=== PATIENT | male | born 1980 | race African-American/Black ===

== ENCOUNTER 2018-02-11 23:12 | Observation (INO) ==
[2018-02-11 23:54] VITALS: TEMP 98.6
--- NOTE | 2018-02-12 01:54 | XR ---
EXAM DATE: 02/12/2018 1:41 AM EDT AGE/SEX: 37 years / Male INDICATIONS: Left upper chest pain off and on. CLINICAL DATA: This is the patient's initial encounter. Patient reports that signs and symptoms have been present for 3 weeks and indicates a pain score of 4/10. MEDICAL/SURGICAL HISTORY: . Diabetes None. COMPARISON: No prior exams available for comparison. FINDINGS: A single AP view of the chest demonstrates the lungs to be symmetrically aerated without evidence of mass, infiltrate or effusion. The cardiomediastinal contours are unremarkable. Osseous structures a re intact. CONCLUSION: No acute cardiopulmonary disease. Electronically signed by: Cedrick Ornelas MD 02/12/2018 1:52 AM EDT
[2018-02-12 01:58] LABS: Baso % (Auto) 0.6 % (0.0-2.0); Eos # (Auto) 0.2 th/mm3 (0.0-0.4); Eos % (Auto) 2.6 % (0.0-4.0); Hematocrit 45.4 % (39.0-51.0); Hemoglobin 14.7 gm/dL (13.0-17.0); Lymph # (Auto) 2.6 th/mm3 (1.0-4.8); Lymph % (Auto) 35.7 % (9.0-44.0); Mean Corpuscular HGB Conc 32.5 % (32.0-36.0); Mean Corpuscular Hemoglobin 27.2 pg (27.0-34.0); Mean Corpuscular Volume 83.8 fL (80.0-100.0); Mean Platelet Volume 8.5 fL (7.0-11.0); Mono # (Auto) 0.9 th/mm3 (0.0-0.9); Mono % (Auto) 12.1 % (0.0-8.0); Neut # (Auto) 3.6 th/mm3 (1.8-7.7); Platelet Count 249 th/mm3 (150-450); Red Blood Count 5.41 mil/mm3 (4.50-5.90); Red Cell Distribution Width 13.8 % (11.6-17.2); White Blood Count 7.4 th/mm3 (4.0-11.0)
[2018-02-12 02:17] LABS: Activated Partial Thrombo Time 25.5 sec (24.3-30.1); Prothrombin Time 10.2 sec (9.8-11.6)
[2018-02-12 02:22] LABS: Alkaline Phosphatase 67 U/L (45-117); Creatine Kinase 282 U/L (39-308); Total Protein 8.1 g/dL (6.4-8.2)
--- NOTE | 2018-02-12 02:23 | ED ---
HPI General Chief complaint: Chest Pain Stated complaint: Chest pain/Resp Time Seen by Provider: 02/12/18 01:27 Source: patient Limitations: no limitations History of Present Illness HPI narrative: The patient is a 37 year old male who presents to the [facility] emergency department with a history of chest pain, shortness of breath, and fluttering sensations that began on 01/16/2018. The patient reports that the symptoms are coming and going. They occur with activity and a rest. He has been to a local [facility] [place] and had labs and an ECG done that were unremarkable according to him. He has not been referred to a nursing care attendant or ever had a stress test done. He reports that he was recently diagnosed with high blood pressure and started on medication, however it made him feel dizzy, therefore he stopped it after 2 days. The patient reports that the chest pain is a throbbing sensation in the left side of his chest and left side of his upper back. He reports having associated shortness of breath. He denies having any nausea or vomiting. He denies having any diaphoresis. He does report having a bloating sensation in the left upper quadrant of the abdomen with intermittent indigestion. He reports that he tried taking Gas-X without improvement. The patient reports that he does smoke a cigar daily. He denies having any prior history of hyperlipidemia or diabetes mellitus. On review of systems otherwise , he denies having any known recent fevers, cough or congestion, neck pain, chest pain, shortness of breath, diarrhea, urinary symptoms, or neurologic symptoms. Related Data Home Medications Medication Instructions Recorded Confirmed metformin 500 mg PO BID 02/12/18 02/12/18 Previous Rx's Medication Instructions Recorded amlodipine 2.5 mg PO DAILY 30 Days #30 tab 02/12/18 Allergies Allergy/AdvReac Type Severity Reaction Status Date / Time No Known Allergies Allergy Unverified 02/12/18 08:58 Review of Systems ROS Unobtainable All other systems reviewed negative except as stated in HPI Constitutional Denies fever(s) Eyes Denies change in vision ENT Denies headache(s) and Denies nasal congestion Cardiovascular Reports chest pain, Reports palpitations, Reports dyspnea and Reports dyspnea on exertion Respiratory Reports dyspnea Gastrointestinal Denies abdominal pain, Reports dyspepsia, Reports heartburn and Reports other ( bloating) Genitourinary Denies difficulty urinating Musculoskeletal Denies myalgias Integumentary/Breasts Denies rash Neurologic Denies headache(s) Psychiatric Denies depression Endocrine Denies polyuria Hematologic/Lymphatic Denies easy bruising [facility] Medical History Medical History Diabetes (Acute) Hypertension (Acute) Sleep apnea (Acute) Surgical History Surgical History H/O Achilles tendon repair (Acute) History of tonsillectomy (Acute) Social History Social History Substance History: No History of Abuse Second Hand Smoke Exposure: Yes Smoking Status: Current every day smoker Tobacco Type: Cigars How Often Do You Have a Drink Containing Alcohol: 2 to 4 times a month Hx Recent Travel: No Recent Travel in [facility] within the Last 8 Weeks: No Recent Out of Country Travel within the Last 8 Weeks: No Immunization History Tetanus Immunization: <5 Years Hx Influenza Vaccine This Season: No Exam Const General: cooperative, no acute distress, well developed and well groomed HENMT Head: normocephalic and atraumatic Nose: no nasal discharge and no epistaxis Mouth: moist mucous membranes Throat: posterior oropharynx normal Eyes Sclera: normal sclerae Pupils: PERRL Neck Neck: no meningeal signs, trachea midline and no JVD Resp Effort & Inspection: no use of accessory muscles Auscultation: clear to auscultation bilaterally Cardio Rate: regular rate Rhythm: regular rhythm Heart Sounds: no murmurs GI Inspection: non-distended Palpation: soft, no hepatosplenomegaly and nontender Auscultation: normal bowel sounds Back/Spine/Pelvis Back: no CVA tenderness Skin General: dry skin (warm) Neuro General: alert, awake and oriented x3 Cranial Nerves: other (No facial asymmetry) Speech: speech normal Motor: no movement abnormalities noted Extrem General: normal to inspection (No calf tenderness on palpation.), no clubbing, no cyanosis and no edema Psych Mood: congruent mood Affect: normal affect Judgment: judgment good Course Initial Documented Vital Signs Temperature 98.6 F 02/11/18 23:51 Pulse Rate 75 02/11/18 23:51 Respiratory Rate 17 02/11/18 23:51 Blood Pressure 181/98 H 02/11/18 23:51 Pulse Oximetry 98 02/11/18 23:51 Last Documented Vital Signs Temperature 98.6 F 02/11/18 23:51 Pulse Rate 58 L 02/12/18 10:00 Respiratory Rate 19 02/12/18 10:00 Blood Pressure 146/74 H 02/12/18 10:00 Pulse Oximetry 100 02/12/18 10:00 Medical Decision Making MDM Narrative Medical decision making narrative: During the course of the patient's emergency department visit, the patient's history, examination, and differential diagnosis were reviewed with the patient. The patient was placed on a devops developer with oximetry and frequent blood pressure monitoring. The patient had IV access obtained and blood work sent for analysis. Diagnostic evaluation was started regarding this patient's chest pain. The patient was initially provided aspirin 324 mg p.o. 1, nitroglycerin sublingual every 5 minutes 3 as needed chest pain, nitroglycerin 1 inch the chest wall. Famotidine 20 mg IV. The patient's laboratory studies are remarkable for a white count of 7.4, platelets 249, monocytosis at 12.1, hemoglobin is 14.7, PT PTT are unremarkable , CMP is remarkable for a troponin I of less than 0.02, sodium 139, glucose 132 , GFR of 81, lipase within normal limits, BMP within normal limits. Chest x-ray showed no evidence of acute cardiopulmonary disease. The patient will be admitted to the chest pain center for rule out serial cardiac enzyme protocol. Lab Data Result diagrams: 02/12/18 01:48 02/12/18 01:48 Lab Results 02/12/18 02/12/18 02/12/18 Range/Units 01:48 01:48 01:48 WBC 7.4 (4.0-11.0) th/mm3 RBC 5.41 (4.50-5.90) mil/mm3 Hgb 14.7 (13.0-17.0) gm/dL Hct 45.4 (39.0-51.0) % MCV 83.8 (80.0-100.0) fL MCH 27.2 (27.0-34.0) pg MCHC 32.5 (32.0-36.0) % RDW 13.8 (11.6-17.2) % Plt Count 249 (150-450) th/mm3 MPV 8.5 (7.0-11.0) fL Neut % (Auto) 49.0 (16.0-70.0) % Lymph % (Auto) 35.7 (9.0-44.0) % [place] % (Auto) 12.1 H (0.0-8.0) % Eos % (Auto) 2.6 (0.0-4.0) % Baso % (Auto) 0.6 (0.0-2.0) % Neut # (Auto) 3.6 (1.8-7.7) th/mm3 Lymph # (Auto) 2.6 (1.0-4.8) th/mm3 [place] # (Auto) 0.9 (0.0-0.9) th/mm3 Eos # (Auto) 0.2 (0.0-0.4) th/mm3 Baso # (Auto) 0.0 (0.0-0.2) th/mm3 WBC Differential . Differential Comment Auto diff final PT 10.2 (9.8-11.6) sec INR 1.0 Ratio APTT 25.5 (24.3-30.1) sec Sodium 139 (136-145) meq/L Potassium 4.0 (3.5-5.1) meq/L Chloride 103 (98-107) meq/L Carbon Dioxide 29.0 (21.0-32.0) meq/L Anion Gap 7 (5-15) meq/L BUN 9 (7-18) mg/dL Creatinine 1.23 (0.60-1.30) mg/dL Estimated GFR 81 L (>89) mL/min Random Glucose 132 H (74-106) mg/dL Calcium 8.9 (8.5-10.1) mg/dL Magnesium 1.9 (1.5-2.5) mg/dL Total Bilirubin 0.2 (0.2-1.0) mg/dL AST 22 (15-37) U/L ALT 52 (12-78) U/L Alkaline Phosphatase 67 (45-117) U/L Total Creatine Kinase 282 (39-308) U/L CK-MB (CK-2) 1.1 (0.5-3.6) ng/mL Troponin I Less than 0.02 L (0.02-0.05) ng/mL B-Natriuretic Peptide (0-100) pg/mL Total Protein 8.1 (6.4-8.2) g/dL Albumin 4.2 (3.4-5.0) g/dL Lipase 213 (73-393) U/L 07/31/18 07/31/18 07/31/18 Range/Units 01:48 06:24 09:45 WBC (4.0-11.0) th/mm3 RBC (4.50-5.90) mil/mm3 Hgb (13.0-17.0) gm/dL Hct (39.0-51.0) % MCV (80.0-100.0) fL MCH (27.0-34.0) pg MCHC (32.0-36.0) % RDW (11.6-17.2) % Plt Count (150-450) th/mm3 MPV (7.0-11.0) fL Neut % (Auto) (16.0-70.0) % Lymph % (Auto) (9.0-44.0) % [place] % (Auto) (0.0-8.0) % Eos % (Auto) (0.0-4.0) % Baso % (Auto) (0.0-2.0) % Neut # (Auto) (1.8-7.7) th/mm3 Lymph # (Auto) (1.0-4.8) th/mm3 [place] # (Auto) (0.0-0.9) th/mm3 Eos # (Auto) (0.0-0.4) th/mm3 Baso # (Auto) (0.0-0.2) th/mm3 WBC Differential Differential Comment PT (9.8-11.6) sec INR Ratio APTT (24.3-30.1) sec Sodium (136-145) meq/L Potassium (3.5-5.1) meq/L Chloride (98-107) meq/L Carbon Dioxide (21.0-32.0) meq/L Anion Gap (5-15) meq/L BUN (7-18) mg/dL Creatinine (0.60-1.30) mg/dL Estimated GFR (>89) mL/min Random Glucose (74-106) mg/dL Calcium (8.5-10.1) mg/dL Magnesium (1.5-2.5) mg/dL Total Bilirubin (0.2-1.0) mg/dL AST (15-37) U/L ALT (12-78) U/L Alkaline Phosphatase (45-117) U/L Total Creatine Kinase 233 218 (39-308) U/L CK-MB (CK-2) (0.5-3.6) ng/mL Troponin I Less than 0.02 L Less than 0.02 L (0.02-0.05) ng/mL B-Natriuretic Peptide 4 (0-100) pg/mL Total Protein (6.4-8.2) g/dL Albumin (3.4-5.0) g/dL Lipase (73-393) U/L Imaging Data Radiologist's impression: Chest X-Ray 02/12/18 01:27 CONCLUSION: No acute cardiopulmonary disease. Discharge Plan Discharge Disposition Patient Disposition: 30 Still Patient Discharge Condition Condition: Good Discharge Order Discharge Orders: Discharge Order (Routine); Ordered 02/12/18 Ordered By: Maday Solis Discharge Details Diagnosis: Chest pain, rule out acute myocardial infarction Physicians Team ED Provider: Anayeli Johnston Primary Care Provider: Primary Care Eleonora Andrew Attending Provider: Rogelio Lamb Discharge Interventions Interventions: ED Discharge Assessment Last Done: 02/12/18 12:48 Status ED Status: Left Department Discharge Information Discharge Date/Time: 02/12/18 12:49
[2018-02-12 02:26] LABS: Alanine Aminotransferase 52 U/L (12-78); Albumin 4.2 g/dL (3.4-5.0); Anion Gap 7 meq/L (5-15); Aspartate Aminotransferase 22 U/L (15-37); Blood Urea Nitrogen 9 mg/dL (7-18); Calcium 8.9 mg/dL (8.5-10.1); Chloride 103 meq/L (98-107); Glomerular Filtration Rate 81 mL/min (>89); Glucose,Random 132 mg/dL (74-106); Lipase 213 U/L (73-393); Magnesium 1.9 mg/dL (1.5-2.5); Sodium 139 meq/L (136-145)
[2018-02-12] MEDS ORDERED: Famotidine PF Inj 20 MG/2 ML Vial IV.PUSH ONE (02:29)
[2018-02-12 02:34] LABS: Creatine Kinase MB 1.1 ng/mL (0.5-3.6)
[2018-02-12 04:12] VITALS: O2SAT 100
[2018-02-12] MEDS ORDERED: Acetaminophen 500 MG Tablet PO PRN (05:50)
[2018-02-12 07:16] LABS: Creatine Kinase 233 U/L (39-308)
--- NOTE | 2018-02-12 08:26 | P.HPCA ---
History of Present Illness Primary Care Physician: Unknown Chief Complaint: Chest pain History of Present Illness: 37 year old male with history of hypertension, type 2 diabetes (states last hga1c 10% and just started on metformin 2 weeks ago), and sleep apnea presents emergency room for further evaluation of intermittent chest pain. Onset 1 month. Location left anterior chest. Characterized as sharp with radiation to left lateral chest and left midback. No associated symptoms. Duration seconds. Precipitating factors seem to be after eating and sometime laying on left side. No relieving factors. Seen on January 16 [facility] for same discomfort. No cardiac testing completed at that time. Followed up with his primary care provider. Started on amlodipine 5 mg last week. Stopped after 2 days due to dizziness. - Diagnosis (1) Chest pain, atypical (2) Type II diabetes mellitus (3) Hypertension (4) Obesity Review of Systems All other systems reviewed negative except as stated in HPI PMFSH - History History Provided By: Patient (Family history noncontributory early onset cardiovascular disease), Significant Other - Medical History Medical History: Medical History (Last Updated 02/12/18 @ 02:27 by Anayeli Johnston MD) Diabetes Sleep apnea Hypertension - Surgical History Surgical History: Surgical History (Last Updated 02/12/18 @ 02:28 by Anayeli Johnston MD) H/O Achilles tendon repair History of tonsillectomy - Tobacco History Second Hand Smoke Exposure: Yes Tobacco Use In Past 30 Days: Yes Smoking Status: Current every day smoker Tobacco Type: Cigars - Alcohol History How Often Do You Have a Drink Containing Alcohol: 2 to 4 times a month - Substance Use History Substance History: No History of Abuse - Travel History History of Recent Travel: No Recent Travel in the [place] Within the Last 8 Weeks: No Recent Travel Out of the Country Within the Last 8 Weeks: No - Immunization History Tetanus Immunization: <5 Years Hx Influenza Vaccine This Season: No Medications and Allergies Active Medications: Active Medications Acetaminophen (Tylenol) 500 mg PO Q4H PRN PRN Reason: HEADACHE Famotidine (Pepcid) 20 mg PO BID PEPITO Sodium Chloride (Ns Flush) 2 ml IV.FLUSH UNSCH PRN PRN Reason: FLUSH AFTER USING IV ACCESS Sodium Chloride (Ns Flush) 2 ml IV.FLUSH BID PEPITO Sodium Chloride (Ns Flush) 2 ml IV.FLUSH PRN PRN PRN Reason: FLUSH AFTER USING IV ACCESS Allergies Allergy/AdvReac Type Severity Reaction Status Date / Time No Known Allergies Allergy Unverified 02/12/18 08:58 Home Medications Medication Instructions Recorded Confirmed Type metformin 500 mg PO BID 02/12/18 02/12/18 History Exam Vital signs: Vital Signs 02/11/18 23:51 02/12/18 02:30 02/12/18 04:11 Temperature 98.6 F Pulse Rate 75 63 58 L Respiratory Rate 17 20 Blood Pressure 181/98 H 169/83 H 129/78 Pulse Oximetry 98 95 100 02/12/18 08:19 Temperature Pulse Rate 61 Respiratory Rate 17 Blood Pressure 143/71 H Pulse Oximetry 100 Intake & Output 02/11/18 02/12/18 02/12/18 18:59 06:59 18:59 Weight 120.202 kg Narrative: GENERAL: Alert WN, WD, NAD, pleasant, obese -[place] male HEAD: NC, AT EYES: Sclera clear, conjunctiva without injection, pupils equal and round ENT: Mucous membranes pink and moist NECK: Supple, no masses, trachea midline CV: RRR, without murmur, rub, or gallop. Chest wall nontender with palpation. RESP: Clear lungs throughout bilateral, no crackles, wheeze, rhonchi, symmetrical chest rise, nonlabored, able to speak in full sentences ABD: Soft, NT, ND, no masses, positive bowel tones EXT: Pulses +2x4, no dependent edema MS: Normal tone x4 extremities, nontender, no obvious deformities, full range of motion NEURO: CN II through CN XII grossly intact, motor strength 5/5 PSYCH: A+O x3, pleasant affect, appropriate speech, appropriate mood, insight and judgment SKIN: Normal turgor, normal texture, no lesions, no rashes, brisk cap refill, even hair distribution, multiple tattoos Results 02/12/18 01:48 02/12/18 01:48 Cardiac Enzymes 02/12/18 02/12/18 02/12/18 Range/Units 01:48 01:48 06:24 AST 22 (15-37) U/L CK-MB (CK-2) 1.1 (0.5-3.6) ng/mL Troponin I Less than 0.02 L Less than 0.02 L (0.02-0.05) ng/mL B-Natriuretic Peptide 4 (0-100) pg/mL Coagulation 02/12/18 02/12/18 Range/Units 01:48 01:48 PT 10.2 (9.8-11.6) sec APTT 25.5 (24.3-30.1) sec B-Natriuretic Peptide 4 (0-100) pg/mL CBC 02/12/18 Range/Units 01:48 WBC 7.4 (4.0-11.0) th/mm3 RBC 5.41 (4.50-5.90) mil/mm3 Hgb 14.7 (13.0-17.0) gm/dL Hct 45.4 (39.0-51.0) % Plt Count 249 (150-450) th/mm3 Neut # (Auto) 3.6 (1.8-7.7) th/mm3 Lymph # (Auto) 2.6 (1.0-4.8) th/mm3 [place] # (Auto) 0.9 (0.0-0.9) th/mm3 Eos # (Auto) 0.2 (0.0-0.4) th/mm3 Baso # (Auto) 0.0 (0.0-0.2) th/mm3 Comprehensive Metabolic Panel 02/12/18 Range/Units 01:48 Sodium 139 (136-145) meq/L Potassium 4.0 (3.5-5.1) meq/L Chloride 103 (98-107) meq/L Carbon Dioxide 29.0 (21.0-32.0) meq/L BUN 9 (7-18) mg/dL Creatinine 1.23 (0.60-1.30) mg/dL Calcium 8.9 (8.5-10.1) mg/dL AST 22 (15-37) U/L ALT 52 (12-78) U/L Alkaline Phosphatase 67 (45-117) U/L Total Protein 8.1 (6.4-8.2) g/dL Albumin 4.2 (3.4-5.0) g/dL Intake and Output 02/11/18 02/12/18 02/12/18 22:59 06:59 14:59 Other: Weight 120.202 kg EKG interpretations - EKG EKG results cardiology: sinus rhythm (Lead III rsr patten, normal variant), normal axis, normal QRS, normal ST/T Caprini VTE Risk Assessment Caprini VTE Risk Assessment: No/Low Risk (score <= 1) Caprini Risk Assessment Model: Point Value = 1 Point Value = 2 Point Value = 3 Point Value = 5 Age 41-60 Minor surgery BMI > 25 kg/m2 Swollen legs Varicose veins or History of unexplained or recurrent spontaneous Oral contraceptives or hormone replacement Sepsis (< 1 month) Serious lung disease, including pneumonia (< 1 month) Abnormal pulmonary function Acute myocardial infarction Congestive heart failure (< 1 month) History of inflammatory bowel disease Medical patient at bed rest Age 61-74 Arthroscopic surgery Major open surgery (> 45 min) Laparoscopic surgery (> 45 min) Malignancy Confined to bed (> 72 hours) Immobilizing plaster cast Central venous access Age >= 75 History of VTE Family history of VTE Factor V Leiden Prothrombin 24050M Lupus anticoagulant Anticardiolipin antibodies Elevated serum homocysteine Heparin-induced thrombocytopenia Other congenital or acquired thrombophilia Stroke (< 1 month) Elective arthroplasty Hip, pelvis, or leg fracture Acute spinal cord injury (< 1 month) Prophylaxis Regimen: Total Risk Factor Score Risk Level Prophylaxis Regimen 0-1 Low Early ambulation 2 Moderate Order ONE of the following: *Sequential Compression Device (SCD) *Heparin 5000 units SQ BID 3-4 Higher Order ONE of the following medications: *Heparin 5000 units SQ TID *Enoxaparin/Lovenox 40 mg SQ daily (WT < 150 kg, CrCl > 30 mL/min) *Enoxaparin/Lovenox 30 mg SQ daily (WT < 150 kg, CrCl > 10-29 mL/min) *Enoxaparin/Lovenox 30 mg SQ BID (WT < 150 kg, CrCl > 30 mL/min) AND/OR *Sequential Compression Device (SCD) 5 or more Highest Order ONE of the following medications: *Heparin 5000 units SQ TID (Preferred with Epidurals) *Enoxaparin/Lovenox 40 mg SQ daily (WT < 150 kg, CrCl > 30 mL/min) *Enoxaparin/Lovenox 30 mg SQ daily (WT < 150 kg, CrCl > 10-29 mL/min) *Enoxaparin/Lovenox 30 mg SQ BID (WT < 150 kg, CrCl > 30 mL/min) AND *Sequential Compression Device (SCD) Assessment and Plan - Assessment (1) Chest pain, atypical Code(s): R07.89 - Other chest pain Status: Acute Plan: Admitted chest pain center. Rule out ACS with 3 sets of EKGs and cardiac enzymes. After being ruled out proceed with exercise cardiac testing. Discomfort likely musculoskeletal in nature, although also discussed possible GI etiology as well. If cardiac testing unremarkable, plans are to discharge home with follow-up with PCP. Verbalized understanding and agreeable to plan of care. (2) Type II diabetes mellitus Code(s): E11.9 - Type 2 diabetes mellitus without complications Status: Chronic Plan: Hold metformin at this time. Diabetes education provided, including dietary changes including but not limited to decreasing, even avoiding sugar and flour intake, this includes sugary beverages and alcohol. Lifestyle and dietary modifications discussed in length. Continue daily activity as able. Instructed to increased vegetable intake. (3) Hypertension Code(s): I10 - Essential (primary) hypertension Status: Chronic Plan: Spikes in elevation of blood pressure likely due to the high sodium intake and this is reason he became dizzy after staring amlodipine. Verbalized understanding. Encouraged and education provided on low sodium diet of no more than 2000mg daily. Discussed being mindful with dietary habits and intake. Weight loss encouraged. instructed to take 2.5mg amlodipine daily in addition to lifestyle modifications. Instructed to take home blood pressure measurement a few times weekly for next 2-3 weeks. If systolic blood pressure reading more than 130 or diastolic blood pressure reading more than 80, increase daily dose of amlodipine to 5mg daily. Follow up with primary care provider for further instruction. (4) Obesity Code(s): E66.9 - Obesity, unspecified Status: Chronic Plan: Encouraged increasing daily activity and deceasing caloric intake. Discussed in length multiple of losing weight, which will also improved diabetes and hypertension. (2) Type II diabetes mellitus Qualifiers: Diabetes mellitus shelter insulin use: without shelter use Diabetes mellitus complication status: without complication Qualified Code(s): E11.9 - Type 2 diabetes mellitus without complications (3) Hypertension Qualifiers: Hypertension type: unspecified Qualified Code(s): I10 - Essential (primary) hypertension (4) Obesity Qualifiers: Obesity type: unspecified obesity type Obesity classification: adult class 2 (BMI 35 - 39.9) Serious obesity comorbidity presence: unspecified whether serious comorbidity present Body mass index: BMI 39.0-39.9 Qualified Code(s): E66.9 - Obesity, unspecified; Z68.39 - Body mass index (BMI) 39.0-39.9, adult
[2018-02-12] MEDS ORDERED: Famotidine 20 MG Tablet PO SCH (09:00)
[2018-02-12 10:27] VITALS: BP 146/74; PULSE 58; RESP 19
[2018-02-12 10:44] LABS: Creatine Kinase 218 U/L (39-308)
--- NOTE | 2018-02-12 16:42 | TR ---
Date Performed: 02/12/2018 Time Performed: 11:12:05 DOCTOR: Brenda Borja DRUG LIST: CLINICAL HISTORY: REASON FOR TEST: REASON FOR ENDING: OBSERVATION: CONCLUSION: Serge protocol completed. Stopped sec to exceeding target heart rate and leg fatigue . Maximum QT=357 Target HR Achieved=91.0% Maximum XM=537/72 Total Exercise Time=10:01. No reprod ches t discomfort. No ectopy. No st t segment changes to sugg ischemia. Great exercise tolerance. Hyperten sive response. Recovery quick and unremarkable. COMMENTS: No ischemia
--- NOTE | 2018-02-12 16:47 | ECG ---
Date Performed: 02/12/2018 Time Performed: 06:09:46 PTAGE: 37 years EKG: SINUS BRADYCARDIA INFERIOR MYOCARDIAL INFARCTION ABNORMAL ECG Since PREVIOUS TRACING , no significant change noted PREVIOUS TRACIN02/11/2018 23.58 DOCTOR: Brenda Borja Interpretating Date/Time 02/12/2018 16:46:00
--- NOTE | 2018-02-12 16:47 | ECG ---
Date Performed: 02/12/2018 Time Performed: 09:18:12 PTAGE: 37 years EKG: SINUS BRADYCARDIA INFERIOR MYOCARDIAL INFARCTION ABNORMAL ECG PREVIOUS TRACING : 02/12/2018 06.09 DOCTOR: Brenda Borja Interpretating Date/Time 02/12/2018 16:45:33
--- NOTE | 2018-02-12 16:48 | ECG ---
Date Performed: 02/11/2018 Time Performed: 23:58:55 PTAGE: 37 years EKG: Sinus rhythm INFERIOR MYOCARDIAL INFARCTION ABNORMAL ECG DOCTOR: Brenda Borja Interpretating Date/Time 02/12/2018 16:47:42
== END 2018-02-12 12:50 | disposition home or self-care (01) ==
LOC: NEPE 23:12 → NEDA 23:12
PROVIDERS: ADMIT Internal Medicine Interventional Cardiology; ATTEND Internal Medicine Interventional Cardiology